=== PATIENT | male | born 1995 | race Hispanic/Latino ===

== ENCOUNTER 2019-01-15 21:56 | Emergency (ER) | payer BC ==
[2019-01-15] MEDS ORDERED: IBUPROFEN PO ONE ×2 (22:23→22:26)
--- NOTE | 2019-01-15 22:23 | Event Note ---
ED Screening Note Date of service: 01/15/19 Time: 22:18 ED Screening Note: This is a 23 y.o. M. that presents to the ER with SOB, fever, and blister to upper lip. Patient started applying orajel to blister and think he is having an allergic reaction to medication. This initial assessment/diagnostic orders/clinical plan/treatment(s) is/are subject to change based on patients health status, clinical progression and re- assessment by fellow clinical providers in the ED. Further treatment and workup at subsequent clinical providers discretion. Patient/guardian urged not to elope from the ED as their condition may be serious if not clinically assessed and managed. Initial orders include: CXR Given motrin
[2019-01-15 22:44] LABS: Basophils % (Auto) 0.3 % (0.0-1.8); Hematocrit 38.7 % (35.5-45.6); Hemoglobin 13.6 gm/dl (11.8-15.2); Lymphocytes # (Auto) 1.4 K/mm3 (1.2-5.4); Lymphocytes % (Auto) 24.6 % (13.4-35.0); Mean Corpuscular HGB Conc 35 % (32-34); Mean Corpuscular Volume 87 fl (84-94); Monocytes # (Auto) 0.3 K/mm3 (0.0-0.8); Monocytes % (Auto) 5.8 % (0.0-7.3); Platelet Count 118 K/mm3 (140-440); Red Blood Count 4.43 M/mm3 (3.65-5.03); Red Cell Distribution Width 13.5 % (13.2-15.2)
[2019-01-15 23:03] LABS: BUN/Creatinine Ratio 15; Blood Urea Nitrogen 17 mg/dL (9-20)
[2019-01-15 23:04] LABS: Alanine Aminotransferase 35 units/L (7-56); Albumin 4.2 g/dL (3.9-5); Calcium 8.6 mg/dL (8.4-10.2); Hemolysis Index 2
[2019-01-15] MEDS ORDERED: BENADRYL IV ONE (23:28)
[2019-01-15] MEDS ORDERED: SOLU-Medrol IV ONE (23:28)
[2019-01-15] MEDS ORDERED: NACL 0.9% 1000 ML 1,000 ML IV ONE ×2 (23:28→23:29)
[2019-01-15] MEDS ORDERED: TYLENOL PO ONE (23:29)
[2019-01-15] MEDS ORDERED: PEPCID IV ONE (23:29)
--- NOTE | 2019-01-15 23:33 | Emergency Department Report ---
ED Allergic Reaction HPI - General Chief complaint: Fever Stated complaint: POSSIBLE ALLERGIC REACTION Time Seen by Provider: 01/15/19 22:18 Source: patient Mode of arrival: Ambulatory Limitations: No Limitations - History of Present Illness Initial Comments: Patient is 23 years old male with no significant positives medical history. Patient presented to the ER complaining of allergic reaction to Orajel. Patient stated that he start using Orajel this morning for sore mouth from fever. Patient is complaining of difficulty breathing but denying any difficulty swallowing. No stridor. MD Complaint: allergic reaction, facial swelling -: This morning Exposure: medication Symptoms: facial swelling, difficulty breathing Severity: moderate Treatment Prior to Arrival: none - Related Data Previous Rx's Medication Instructions Recorded Last Taken Type EPINEPHrine [Epipen] 0.3 mg IJ ONCE #1 auto.injct 01/16/19 Unknown Rx Famotidine [Pepcid] 40 mg PO QHS #5 tablet 01/16/19 Unknown Rx Prednisone [predniSONE 10 mg 10 mg PO .TAPER #1 tab.ds.pk 01/16/19 Unknown Rx (6-Day Pack, 21 Tabs)] diphenhydrAMINE [Benadryl CAP] 25 mg PO Q8HR PRN #20 capsule 01/16/19 Unknown Rx Allergies Allergy/AdvReac Type Severity Reaction Status Date / Time No Known Allergies Allergy Verified 01/15/19 22:26 ED Review of Systems ROS: Stated complaint: POSSIBLE ALLERGIC REACTION Other details as noted in HPI Comment: All other systems reviewed and negative Constitutional: chills, fever Respiratory: denies: cough, orthopnea, shortness of breath, SOB with exertion Cardiovascular: palpitations. denies: chest pain Gastrointestinal: denies: abdominal pain, nausea, vomiting Musculoskeletal: denies: back pain Neurological: denies: headache, weakness, numbness, paresthesias, confusion ED Past Medical Hx - Past Medical History Previous Medical History?: No - Surgical History Past Surgical History?: No - Social History Smoking Status: Never Smoker Substance Use Type: None - Medications Home Medications: Home Medications Medication Instructions Recorded Confirmed Last Taken Type EPINEPHrine [Epipen] 0.3 mg IJ ONCE #1 auto.injct 01/16/19 Unknown Rx Famotidine [Pepcid] 40 mg PO QHS #5 tablet 01/16/19 Unknown Rx Prednisone [predniSONE 10 mg 10 mg PO .TAPER #1 tab.ds.pk 01/16/19 Unknown Rx (6-Day Pack, 21 Tabs)] diphenhydrAMINE [Benadryl CAP] 25 mg PO Q8HR PRN #20 capsule 01/16/19 Unknown Rx ED Physical Exam - General Limitations: No Limitations General appearance: alert, in no apparent distress - Head Head exam: Present: atraumatic, normocephalic, normal inspection - Eye Eye exam: Present: normal appearance, PERRL - ENT ENT exam: Present: normal exam, normal orophraynx, mucous membranes moist - Neck Neck exam: Present: normal inspection, full ROM. Absent: tenderness, meningismus, lymphadenopathy, thyromegaly - Respiratory Respiratory exam: Present: normal lung sounds bilaterally - Cardiovascular Cardiovascular Exam: Present: tachycardia, normal heart sounds - GI/Abdominal GI/Abdominal exam: Present: soft, normal bowel sounds. Absent: distended, tenderness, guarding, rebound, rigid, organomegaly, mass, bruit, pulsatile mass, hernia - Extremities Exam Extremities exam: Present: normal inspection, full ROM, normal capillary refill - Back Exam Back exam: Present: normal inspection, full ROM. Absent: CVA tenderness (R), CVA tenderness (L), muscle spasm, paraspinal tenderness, vertebral tenderness - Neurological Exam Neurological exam: Present: alert, oriented X3, CN II-XII intact - Skin Skin exam: Present: warm, intact, normal color ED Course Vital Signs 01/15/19 01/15/19 01/16/19 22:00 23:30 00:00 Temperature 102.9 F H 99.8 F H Pulse Rate 112 H 93 H 75 Respiratory 18 17 21 Rate Blood Pressure 111/72 Blood Pressure 95/64 91/52 [Right] O2 Sat by Pulse 97 100 100 Oximetry 01/16/19 01/16/19 01/16/19 01:15 03:00 05:00 Temperature 97.8 F Pulse Rate 75 79 72 Respiratory 18 20 18 Rate Blood Pressure Blood Pressure 86/51 93/53 91/61 [Right] O2 Sat by Pulse 99 98 100 Oximetry 01/16/19 05:45 Temperature Pulse Rate 66 Respiratory 18 Rate Blood Pressure Blood Pressure 102/70 [Right] O2 Sat by Pulse 100 Oximetry ED Medical Decision Making - Lab Data Result diagrams: 01/15/19 22:33 01/15/19 22:33 - Medical Decision Making Patient is 23 years old male with no significant positives medical history. Patient presented to the ER complaining of allergic reaction to Orajel. Patient stated that he start using Orajel this morning for sore mouth from fever. Patient is complaining of difficulty breathing but denying any difficulty swallowing. No stridor. Patient received Benadryl, Pepcid, Solu-Medrol, epinephrine and 3 L of normal saline. Patient stated that he is feeling much better. Patient blood pressure is 96/63 with a MAP of 76. Patient advised to follow-up with his primary care physician in the next 2-3 days and to return to the ER if symptoms are not improved. Critical Care Time: Yes Critical care time in (mins) excluding proc time.: 30 Critical care attestation.: If time is entered above; I have spent that time in minutes in the direct care of this critically ill patient, excluding procedure time. ED Disposition Clinical Impression: Hypotension, Allergic reaction Disposition: DC- TO HOME OR SELFCARE Is pt being admited?: No Condition: Stable Instructions: Anaphylaxis (ED), Hypotension (ED) Prescriptions: Famotidine [Pepcid] 40 mg PO QHS #5 tablet diphenhydrAMINE [Benadryl CAP] 25 mg PO Q8HR PRN #20 capsule PRN Reason: Itching EPINEPHrine [Epipen] 0.3 mg IJ ONCE #1 auto.injct Prednisone [predniSONE 10 mg (6-Day Pack, 21 Tabs)] 10 mg PO .TAPER #1 tab.ds.pk Referrals: CASEY ZAVALA MD [Primary Care Provider] - 3-5 Days
--- NOTE | 2019-01-15 23:35 | XRay Report ---
CHEST 2 VIEWS INDICATION / CLINICAL INFORMATION: fever and SOB. COMPARISON: None available. FINDINGS: SUPPORT DEVICES: None. HEART / MEDIASTINUM: No significant abnormality. LUNGS / PLEURA: No significant pulmonary or pleural abnormality. No pneumothorax. ADDITIONAL FINDINGS: No significant additional findings. IMPRESSION: 1. No acute findings. Signer Name: Trever Evangelista MD Signed: 01/15/2019 11:31 PM Workstation Name: [id number]
[2019-01-16] MEDS ORDERED: NACL 0.9% 1000 ML 1,000 ML IV ONE (01:31)
[2019-01-16] MEDS ORDERED: ADRENALINE P/F SUB-Q ONE (02:02)
[2019-01-16 06:06] LABS: Bilirubin,Urine NEG (Negative); Blood,Urine NEG (Negative); Color,Urine Straw (Yellow); Protein,Urine <15 mg/dL mg/dL (Negative); Urobilinogen,Urine < 2.0 mg/dL (<2.0)
[2019-01-16 06:09] VITALS: BP 102/70
== END 2019-01-16 06:15 | disposition home or self-care (01) ==
LOC: ED 21:56
DX: T78.40XA Allergy, unspecified, initial encounter (principal); I95.9 Hypotension, unspecified; Z79.899 Other long term (current) drug therapy
CPT/HCPCS: 36415; 71046; 80053; 81001; 85025; 93005; 93010; 96361; 96372; 96374; 96375; 99291; J0171; J1200; J2930; J7030